=== PATIENT | female | born 1985 | race African-American/Black ===

== ENCOUNTER 2022-04-29 02:58 | Emergency (ER) | payer BC ==
[2022-04-29 03:12] VITALS: RESP 18; BMI 21.4
[2022-04-29] MEDS ORDERED: ACETAMINOPHEN 500 MG TABLET (FP) PO ONE (05:09)
[2022-04-29] MEDS ORDERED: SODIUM CHLORIDE 0.9% 500 ML INFUS.BAG IV ONE ×2 (05:10→07:41)
[2022-04-29] MEDS ORDERED: ACETAMINOPHEN 1000 MG/100 ML BAG IVPB ONE (05:10)
[2022-04-29] MEDS ORDERED: ACETAMINOPHEN INJECTION 100 ML IVPB ONE (05:12)
[2022-04-29 05:40] LABS: BASO % 0.4 % (0-2.0); EOS % 0.4 % (0-4.5); HEMOGLOBIN 12.1 GM/dL (10.7-15.3); INR 1.07 (0.83-1.09); LYMPH % 21.5 % (8-40); MCH 28.7 pg (25.7-33.7); MCHC 33.6 g/dl (32.0-36.0); MEAN CELL VOLUME 85.4 fl (80-96); MEAN PLT VOLUME 9.1 fl (7.5-11.1); MONO % 8.3 % (3.8-10.2); NEUT % 69.4 % (42.8-82.8); PLATELET COUNT 173 10^3/uL (134-434); PROTHROMBIN TIME (PATIENT) 12.4 SEC (9.7-13.0); RBC 4.21 M/mm3 (3.60-5.2); RDW 13.8 % (11.6-15.6); WHITE BLOOD COUNT 6.4 K/mm3 (4.0-10.0)
[2022-04-29 05:43] LABS: ACTIVATED PTT 31.7 SECONDS (25.2-36.5)
[2022-04-29 05:49] LABS: CALCIUM 8.1 mg/dL (8.5-10.1)
[2022-04-29 05:50] LABS: ALBUMIN 3.3 g/dl (3.4-5.0); BLOOD UREA NITROGEN 6.3 mg/dL (7-18)
[2022-04-29 05:52] LABS: CREATININE 0.6 mg/dL (0.55-1.3)
[2022-04-29 05:54] LABS: BILIRUBIN,TOTAL 0.4 mg/dL (0.2-1); TOT PROT 6.7 g/dl (6.4-8.2)
[2022-04-29 06:52] LABS: URINE APPEARANCE CLEAR; URINE BILIRUBIN NEGATIVE (NEGATIVE); URINE COLOR YELLOW; URINE GLUCOSE (UA) NEGATIVE (NEGATIVE); URINE KETONE NEGATIVE (NEGATIVE); URINE LEUK ESTERASE NEGATIVE (NEGATIVE); URINE NITRITE NEGATIVE (NEGATIVE); URINE PROTEIN TRACE (NEGATIVE); URINE UROBILINOGEN 0.2 mg/dL (0.2-1.0)
[2022-04-29 11:06] VITALS: BP 115/72; PULSE 78; TEMP 98.1
== END 2022-04-29 11:09 | disposition home or self-care (01) ==
LOC: JER 02:58
PROC: 3E033GC Introduction of Other Therapeutic Substance into Peripheral Vein, Percutaneous Approach (ICD-10-PCS; principal; 2022-04-29)
DX: O26.891 Other specified pregnancy related conditions, first trimester (principal); R10.30 Lower abdominal pain, unspecified; Z3A.01 Less than 8 weeks gestation of pregnancy
CPT/HCPCS: 36415; 76817-TC; 80053; 81003; 84702; 85025; 85610; 85730; 86850; 86900; 86901; 87086; 99284-25

== ENCOUNTER 2022-12-07 07:04 | Inpatient (IN) | payer BC ==
[2022-12-07] MEDS ORDERED: ELECTROLYTE-148 SOLN 1,000 ML IV SCH (07:45)
[2022-12-07] MEDS ORDERED: OXYTOCIN 30 UNITS in 0.9% NS 30 UNIT/500 ML INFUS.BAG IVPB SCH (07:45)
[2022-12-07] MEDS ORDERED: OXYTOCIN 30 UNITS in 0.9% NS 30 UNIT/500 ML INFUS.BAG IVPB ONE (07:56)
[2022-12-07 08:32] LABS: INR 0.92 (0.83-1.09); PROTHROMBIN TIME (PATIENT) 10.7 SEC (9.7-13.0)
[2022-12-07 08:35] LABS: ACTIVATED PTT 27.6 SECONDS (25.2-36.5); BASO % 0.5 % (0-2.0); EOS % 0.9 % (0-4.5); HEMATOCRIT 37.8 % (32.4-45.2); LYMPH % 26.2 % (8-40); MCH 26.2 pg (25.7-33.7); MCHC 31.6 g/dl (32.0-36.0); MEAN CELL VOLUME 82.9 fl (80-96); MEAN PLT VOLUME 9.4 fl (7.5-11.1); MONO % 9.9 % (3.8-10.2); NEUT % 62.5 % (42.8-82.8); PLATELET COUNT 193 10^3/uL (134-434); RBC 4.56 M/mm3 (3.60-5.2); RDW 15.4 % (11.6-15.6); WHITE BLOOD COUNT 6.2 K/mm3 (4.0-10.0)
[2022-12-07 08:47] LABS: POTASSIUM 3.6 mmol/L (3.5-5.1)
[2022-12-07 08:48] LABS: BLOOD UREA NITROGEN 8.9 mg/dL (7-18); CALCIUM 8.6 mg/dL (8.5-10.1)
[2022-12-07 08:52] LABS: CREATININE 0.8 mg/dL (0.55-1.3)
[2022-12-07 09:33] VITALS: BMI 25.8
[2022-12-07] MEDS ORDERED: LIDOCAINE HCL 1% PRESERVATIVE FREE - 30ML VIAL ONE (14:02)
[2022-12-07] MEDS ORDERED: BUTORPHANOL TARTRATE 2 MG/ML VIAL ONE (14:44)
[2022-12-07] MEDS ORDERED: PROMETHAZINE HCL 25 MG/1 ML VIAL ONE (14:45)
[2022-12-07] MEDS ORDERED: BUTORPHANOL TARTRATE 1 MG/ML VIAL IVPUSH ONE (14:49)
[2022-12-07] MEDS ORDERED: PROMETHAZINE HCL 25 MG/1 ML VIAL IM ONE (14:49)
[2022-12-07] MEDS ORDERED: FENTANYL/BUPIVACAINE/NS/PF - PCEA - 50 ML DISP.SYRIN EP ONE (15:03)
[2022-12-07] MEDS ORDERED: NALOXONE HCL 0.4 MG/ML VIAL IVPUSH PRN (15:12)
[2022-12-07] MEDS ORDERED: FENTANYL/BUPIVACAINE/NS/PF - PCEA - 50 ML DISP.SYRIN EP SCH (15:15)
[2022-12-07] MEDS ORDERED: LIDOCAINE HCL/PF 2% SDV 5ML VIAL ONE (15:23)
[2022-12-07] MEDS ORDERED: BUPIVACAINE HCL/PF 0.25% (2.5MG/ML) 10 ML VIAL ONE ×2 (15:23→18:15)
[2022-12-07] MEDS ORDERED: SODIUM CHLORIDE 0.9% P/F 10 ML VIAL IJ ONE (18:19)
[2022-12-07] MEDS ORDERED: ceFAZolin SODIUM 1 GM VIAL ONE (18:19)
[2022-12-07] MEDS ORDERED: morphine SULFATE/PF 1 MG/2 ML (2cc Syringe - QUVA) ONE (18:20)
[2022-12-07] MEDS ORDERED: CITRIC ACID/SODIUM CITRATE 30 ML UNIT-DOSE CUP PO ONE (18:36)
[2022-12-07] MEDS ORDERED: TRIAMCINOLONE ACETONIDE 40 MG/ML 10 ML VIAL SQ ONE (18:37)
[2022-12-07] MEDS ORDERED: OXYTOCIN 10 UNITS/ML VIAL ONE ×3 (18:47→19:01)
[2022-12-07] MEDS ORDERED: MEPERIDINE HCL 25 MG/ML VIAL ONE (18:50)
[2022-12-07] MEDS ORDERED: PHENYLEPHRINE HCL 10 MG/1 ML SINGLE DOSE VIAL ONE (19:02)
[2022-12-07 19:41] LABS: CORD BASE EXCESS -2.2 mmol/L (0-2); CORD HCO3 23.6 mmHg (20-29); CORD PCO2 44.1 mmHg (30-78); CORD pH 7.347 (7.14-7.44)
[2022-12-07 19:42] LABS: CORD BASE EXCESS -4.4 mmol/L (0-2); CORD HCO3 19.6 mmHg (20-29); CORD pH 7.379 (7.14-7.44)
[2022-12-07] MEDS ORDERED: ONDANSETRON 4 MG/2 ML VIAL IVPUSH PRN (19:55)
[2022-12-07] MEDS ORDERED: morphine SULFATE/PF 1 MG/2 ML (2cc Syringe - QUVA) EP ONE (19:55)
[2022-12-07] MEDS ORDERED: ACETAMINOPHEN 325 MG TABLET (FP) PO PRN ×2 (19:55→20:23)
[2022-12-07] MEDS: ELECTROLYTE-148 SOLN 1,000 ML IV SCH (20:15)
[2022-12-07] MEDS ORDERED: METHYLERGONOVINE MALEATE 0.2 MG/1 ML AMP IM PRN (20:23)
[2022-12-07] MEDS ORDERED: ACETAMINOPHEN 1000 MG/100 ML BAG IVPB PRN (20:31)
[2022-12-07] MEDS ORDERED: IBUPROFEN 800 MG/8 ML IJ IVPB PRN (20:32)
[2022-12-08] MEDS: CEFAZOLIN 1 GM in DEXTROSE 5%-WATER - 50 ML IVPB SCH ×3 (02:06→17:29)
[2022-12-08] MEDS: ELECTROLYTE-148 SOLN 1,000 ML IV SCH (02:15)
[2022-12-08 05:47] VITALS: RESP 18
[2022-12-08] MEDS ORDERED: oxyCODONE HCL 5 MG TABLET PO PRN (08:23)
[2022-12-08 08:25] LABS: BASO % 0.2 % (0-2.0); EOS % 0.1 % (0-4.5); HEMATOCRIT 34.5 % (32.4-45.2); HEMOGLOBIN 10.9 GM/dL (10.7-15.3); MCH 26.6 pg (25.7-33.7); MCHC 31.6 g/dl (32.0-36.0); MEAN PLT VOLUME 9.4 fl (7.5-11.1); MONO % 9.4 % (3.8-10.2); NEUT % 79.3 % (42.8-82.8); PLATELET COUNT 180 10^3/uL (134-434); RBC 4.11 M/mm3 (3.60-5.2); RDW 15.9 % (11.6-15.6); WHITE BLOOD COUNT 10.8 K/mm3 (4.0-10.0)
[2022-12-08] MEDS ORDERED: FLU VACCINE (FLULAVAL) PF 60 MCG/0.5 ML SYRINGE 2023-2024 IM ONE (10:00)
[2022-12-08] MEDS: ENOXAPARIN NA (PORCINE) 40 MG/0.4 ML DISP.SYRIN SQ SCH (10:11)
[2022-12-08] MEDS: SIMETHICONE 80 MG TAB.CHEW (FP) PO PRN (10:11)
[2022-12-08] MEDS: TRIAMCINOLONE ACET 0.1% CREAM 80 GM TUBE TP SCH (10:13)
[2022-12-08] MEDS: IBUPROFEN 600 MG TABLET (FP) PO PRN (17:15)
[2022-12-08] MEDS ORDERED: BISACODYL 10 MG SUPP.RECT RC PRN (20:23)
[2022-12-09] MEDS: IBUPROFEN 600 MG TABLET (FP) PO PRN ×2 (06:08→20:12)
[2022-12-09] MEDS: SIMETHICONE 80 MG TAB.CHEW (FP) PO PRN ×2 (06:14→20:13)
[2022-12-09] MEDS: ENOXAPARIN NA (PORCINE) 40 MG/0.4 ML DISP.SYRIN SQ SCH (10:19)
[2022-12-09] MEDS: TRIAMCINOLONE ACET 0.1% CREAM 80 GM TUBE TP SCH (16:41)
[2022-12-10 08:00] LABS: BASO % 0.2 % (0-2.0); EOS % 0.1 % (0-4.5); HEMATOCRIT 32.1 % (32.4-45.2); HEMOGLOBIN 10.1 GM/dL (10.7-15.3); LYMPH % 16.1 % (8-40); MCH 26.3 pg (25.7-33.7); MCHC 31.5 g/dl (32.0-36.0); MEAN CELL VOLUME 83.5 fl (80-96); MEAN PLT VOLUME 9.8 fl (7.5-11.1); NEUT % 75.6 % (42.8-82.8); PLATELET COUNT 191 10^3/uL (134-434); RBC 3.84 M/mm3 (3.60-5.2)
[2022-12-10 09:04] VITALS: BP 113/61; PULSE 82; TEMP 98.5
[2022-12-10] MEDS: TRIAMCINOLONE ACET 0.1% CREAM 80 GM TUBE TP SCH (09:41)
[2022-12-10] MEDS: ENOXAPARIN NA (PORCINE) 40 MG/0.4 ML DISP.SYRIN SQ SCH (09:41)
[2022-12-10] MEDS: SIMETHICONE 80 MG TAB.CHEW (FP) PO PRN (13:34)
[2022-12-10] MEDS: IBUPROFEN 600 MG TABLET (FP) PO PRN (13:34)
== END 2022-12-10 14:51 | disposition home or self-care (01) | DRG 788 ==
LOC: JLDR 07:04 → J3W 22:00
PROVIDERS: ADMIT Obstetrics & Gynecology; ATTEND Obstetrics & Gynecology
PROC: 10D00Z1 Extraction of Products of Conception, Low, Open Approach (ICD-10-PCS; principal; 2022-12-07)
DX: O62.1 Secondary uterine inertia (principal); Z3A.40 40 weeks gestation of pregnancy; Z37.0 Single live birth
CPT/HCPCS: 36415; 36600; 80048; 82803; 85025; 85610; 85730; 86780; 86850; 86900; 86901; 88307-TC; 90686; 94010; G0008

== ENCOUNTER 2023-11-19 05:06 | Emergency (ER) | payer BC, OTHER ==
[2023-11-19 05:39] VITALS: BP 112/73; PULSE 72; RESP 18; TEMP 97.7; BMI 23.0
== END 2023-11-19 06:04 | disposition home or self-care (01) ==
LOC: JER 05:06
DX: N61.0 Mastitis without abscess (principal); N64.59 Other signs and symptoms in breast
CPT/HCPCS: 99283-25